=== PATIENT | female | born 1955 ===

== ENCOUNTER → 2017-12-02 19:40 | Outpatient (REF) | payer SELFPAY ==
[2017-12-02 20:39] LABS: Free T3, Triiodothyronine Free 3.81 pg/mL (2.77-5.27); Free T4, Direct Thyroxine 1.02 ng/dL (0.78-2.19)
== END ==
LOC: LAB 19:40
PROVIDERS: Visit Provider Naturopath
DX: R53.83 Other fatigue (principal)
CPT/HCPCS: 84436; 84439; 84481